=== PATIENT | male | born 1980 | race Caucasian/White ===

== ENCOUNTER 2019-07-11 08:00 | Outpatient (RCR) | payer MEDICARE, SELFPAY | END 2019-07-11 10:00 | disposition home or self-care (01) | LOC: PT.CARL 08:00 | PROVIDERS: PCP Nurse Practitioner Family; Visit Provider Orthopaedic Surgery | DX: M54.12 Radiculopathy, cervical region (principal) | CPT/HCPCS: 97012; 97014; 97110; 97140; 97163; G0283 ==